=== PATIENT | male | born 1995 | race American Indian/Alaskan Native ===

== ENCOUNTER 2017-03-02 17:54 | Emergency (ER) | payer MEDICARE ==
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
[2017-03-02] MEDS ORDERED: NACL 0.9% IR ONE (22:22)
[2017-03-02] MEDS ORDERED: NACL 0.9% 500 ML IR ONE (22:23)
[2017-03-03] MEDS ORDERED: XYLOCAINE 2%/ EPI 1:200,000 INFILTRATI ONE ×2 (00:19→00:24)
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
[2017-03-03 02:52] VITALS: BP 143/82
== END 2017-03-03 02:10 | disposition home or self-care (01) ==
LOC: ED 17:54
DX: S01.81XA Laceration without foreign body of other part of head, initial encounter (principal); V19.9XXA Pedal cyclist (driver) (passenger) injured in unspecified traffic accident, initial encounter; Y93.89 Activity, other specified; Y92.89 Other specified places as the place of occurrence of the external cause; Y99.8 Other external cause status
CPT/HCPCS: 70450; 99283

== ENCOUNTER 2017-03-15 11:54 | Emergency (ER) | payer MEDICARE ==
[2017-03-15 12:14] VITALS: BP 130/81
--- NOTE | 2017-03-15 12:52 | Emergency Department Report ---
ED Recheck HPI - General Chief Complaint: Laceration/Recheck/Suture Stated Complaint: STITCHES REMOVED Time Seen by Provider: 03/15/17 12:25 Source: patient Mode of arrival: Ambulatory Limitations: No Limitations - History of Present Illness Initial Comments: Patient presented to the emergency room for suture removal to his forehead. He said he had sutures placed on 03/03/2017. He is here to have them removed. He said he could not appear because he had to move and couldn't get here. Denies any fever, chills, redness and drainage from incision site. Complaint: suture/staple removal Onset/Timin -: days(s) Initial Visit For: laceration Returns Today for: staple/Stitch removal Symptoms Since Prior Visit: no new symptoms Context: planned re-check Associated Symptoms: none Treatments Prior to Arrival: Given Antibiotics on (ointment) - Related Data Previous Rx's Medication Instructions Recorded Last Taken Type Sulfamethoxazole/Trimethoprim 1 each PO BID #20 tablet 06/04/13 Unknown Rx [Bactrim DS] HYDROcodone/APAP 5-325 [[place] 1 each PO Q6HR PRN #12 tablet 06/01/16 Unknown Rx 5/325] Ibuprofen [Motrin 800 MG tab] 800 mg PO Q8HR PRN #30 tablet 06/01/16 Unknown Rx Bacitracin/Polymixin B [Polysporin] 1 applicatio TP BID #1 tube 03/03/17 Unknown Rx traMADol [Ultram] 50 mg PO Q6HR PRN #20 tablet 03/03/17 Unknown Rx Allergies Allergy/AdvReac Type Severity Reaction Status Date / Time No Known Allergies Allergy Verified 06/01/16 15:25 ED Review of Systems ROS: Stated complaint: STITCHES REMOVED Other details as noted in HPI Comment: All other systems reviewed and negative Constitutional: denies: chills, fever Respiratory: no symptoms reported Cardiovascular: denies: chest pain, palpitations, edema, syncope Skin: other (here for suture removal) Neurological: denies: headache, weakness, numbness, paresthesias ED Past Medical Hx - Past Medical History Previous Medical History?: Yes Additional medical history: special needs, head lac - Surgical History Past Surgical History?: No - Family History Family history: no significant - Social History Smoking Status: Current Some Day Smoker Substance Use Type: Prescribed - Medications Home Medications: Home Medications Medication Instructions Recorded Confirmed Last Taken Type Sulfamethoxazole/Trimethoprim 1 each PO BID #20 tablet 06/04/13 Unknown Rx [Bactrim DS] HYDROcodone/APAP 5-325 [[place] 1 each PO Q6HR PRN #12 tablet 06/01/16 Unknown Rx 5/325] Ibuprofen [Motrin 800 MG tab] 800 mg PO Q8HR PRN #30 tablet 06/01/16 Unknown Rx Bacitracin/Polymixin B [Polysporin] 1 applicatio TP BID #1 tube 03/03/17 Unknown Rx traMADol [Ultram] 50 mg PO Q6HR PRN #20 tablet 03/03/17 Unknown Rx ED Physical Exam - General Limitations: No Limitations General appearance: alert, in no apparent distress - Head Head exam: Present: atraumatic, normocephalic, normal inspection, other ( patient with healed laceration) - Eye Eye exam: Present: normal appearance, PERRL, EOMI Pupils: Present: normal accommodation - Neck Neck exam: Present: normal inspection, full ROM. Absent: tenderness - Respiratory Respiratory exam: Present: normal lung sounds bilaterally. Absent: respiratory distress - Cardiovascular Cardiovascular Exam: Present: regular rate, normal rhythm, normal heart sounds - Extremities Exam Extremities exam: Present: normal inspection, full ROM, normal capillary refill. Absent: tenderness, pedal edema, joint swelling, calf tenderness - Back Exam Back exam: Present: normal inspection, full ROM - Neurological Exam Neurological exam: Present: alert, oriented X3, normal gait. Absent: motor sensory deficit - Psychiatric Psychiatric exam: Present: normal affect, normal mood - Skin Skin exam: Present: warm, dry, intact, normal color, other (laceration to mid forehead. Healed and with sutures.). Absent: erythema (no drainage. NTTP) ED Course Vital Signs 03/15/17 12:11 Temperature 98.2 F Pulse Rate 73 Respiratory 16 Rate Blood Pressure 130/81 O2 Sat by Pulse 99 Oximetry - Reevaluation(s) Reevaluation #1: 03/15/17 13:09 7 sutures removed from mid forehead laceration ED Recheck MDM - Medical Decision Making ED Course: Pt Here for suture removal from midforehead laceration. Sutures were placed on 03/03/2017 and the area is without redness, swelling, drainage or tenderness palpated. Wound edges well approximated. 7 sutures removed from laceration sites and ear is healed. Patient discharged home in stable condition to keep affected area clean and dry. Critical care attestation.: If time is entered above; I have spent that time in minutes in the direct care of this critically ill patient, excluding procedure time. ED Disposition Clinical Impression: Encounter for removal of sutures Disposition: - TO HOME OR SELFCARE Is pt being admited?: No Does the pt Need Aspirin: No Condition: Stable Instructions: Suture Removal (ED) Referrals: PRIMARY CARE, [Primary Care Provider] - 3-5 Days Forms: Work/School Release Form(ED)
== END 2017-03-15 13:49 | disposition home or self-care (01) ==
LOC: ED 11:54
DX: Z48.02 Encounter for removal of sutures (principal); Z72.0 Tobacco use